=== PATIENT | female | born 1955 | race African-American/Black ===

== ENCOUNTER 2021-07-13 12:17 | Emergency (ER) | payer OTHER ==
[~2021-07-13] VITALS: Ht 170.2 cm; Wt 74.8 kg
[2021-07-13 13:02] LABS: ABSOLUTE NEUTROPHILS 5.4 thou/uL (1.4-8.2); BASOPHILS 0.3 % (0.0-2.0); HEMATOCRIT 43.9 % (37.0-47.0); HEMOGLOBIN 14.5 gm/dL (12.0-15.0); LYMPHOCYTES 18.9 % (24.0-44.0); MCH 29.3 pg (26.0-34.0); MCV 88.9 fL (80.0-100.0); MONOCYTES 9.9 % (1.0-8.0); PLATELET COUNT 208 thou/uL (150-400); POLYS 68.9 % (36.0-66.0); RBC 4.94 mil/uL (4.20-5.00); RDW 13.6 % (10.5-14.5); WBC 7.9 thou/uL (4.0-11.0)
[2021-07-13 13:11] LABS: CALCIUM 9.4 mg/dL (8.5-10.1); POTASSIUM 3.9 mmol/L (3.5-5.1)
[2021-07-13 13:17] LABS: ALBUMIN 3.6 g/dL (3.4-5.0); TOTAL BILIRUBIN 0.2 mg/dL (0.2-1.0); TOTAL PROTEIN 7.8 g/dL (6.4-8.2)
[2021-07-13 13:30] LABS: URINE BILIRUBIN NEGATIVE (Negative); URINE BLOOD NEGATIVE (Negative); URINE CLARITY CLEAR; URINE COLOR YELLOW; URINE GLUCOSE-RANDOM* NEGATIVE (Negative); URINE KETONES NEGATIVE (Negative); URINE NITRITE-REFLEX NEGATIVE (Negative); URINE PROTEIN (DIPSTICK) NEGATIVE (Negative); URINE SPECIFIC GRAVITY >= 1.030 (1.005-1.035); URINE UROBILINOGEN 0.2 E.U./dl (0.2-1.0)
[2021-07-13 13:37] LABS: URINE LEUKOCYTES-REFLEX 1+ (Negative)
[2021-07-13 13:47] LABS: SQUAMOUS 4-10 Moderate /LPF (0-3)
[2021-07-13 13:48] LABS: MUCUS 0-3 Light strn/LPF (None Seen); URINE RBC 1-2 Rare /HPF (NONE SEEN)
[2021-07-13] MEDS ORDERED: CEPHALEXIN500 MG PO (14:54)
[2021-07-13] MEDS ORDERED: TYLENOL325 MG PO (15:07)
[2021-07-13] MEDS ORDERED: ADVAIR 250-501 EACH INH (15:08)
[2021-07-13] MEDS ORDERED: PROAIR DIGIHAL90 MCG INH (15:20)
[2021-07-13] MEDS ORDERED: NORVASC10 MG PO (15:21)
[2021-07-13] MEDS ORDERED: VAZALORE81 MG PO (15:21)
[2021-07-13] MEDS ORDERED: ARICEPT10 M1 PO (15:21)
[2021-07-13] MEDS ORDERED: VITAMIN D31250 MC1 PO (15:26)
[2021-07-13] MEDS ORDERED: CLONIDINE HCL0.1 M1 PO (15:28)
[2021-07-13] MEDS ORDERED: DULCOLAX STOOL100 M1 PO (15:28)
[2021-07-13] MEDS ORDERED: HYDROXYZINE HCL25 M2 PO (15:28)
[2021-07-13] MEDS ORDERED: LOPRESSOR50 MG PO (15:29)
[2021-07-13] MEDS ORDERED: MIRALAX119 GM PO (15:29)
[2021-07-13] MEDS ORDERED: VITAMIN B-1100 M2 PO (15:30)
[2021-07-13] MEDS ORDERED: ZOLOFT100 MG PO (15:30)
[2021-07-13] MEDS ORDERED: SUPER THERAVIT1 EACH PO (15:30)
[2021-07-13] MEDS ORDERED: VENTOLIN HFA 1818 GM INH (15:31)
[2021-07-13] MEDS ORDERED: VITAMIN C500 M2 PO (15:32)
[2021-07-13] MEDS ORDERED: ZINC-22050 MG PO (15:33)
--- NOTE | 2021-07-13 15:36 | EKG ---
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 07/13/21 [id number] William Zhang MD, FACC /EPI
[2021-07-13 21:22] VITALS: BP 128/75
== END 2021-07-13 21:15 | disposition home or self-care (01) ==
LOC: ER 12:17
PROVIDERS: Physician Assistant
DX: N39.0 Urinary tract infection, site not specified (principal); F41.9 Anxiety disorder, unspecified; F32.9 Major depressive disorder, single episode, unspecified; K21.9 Gastro-esophageal reflux disease without esophagitis; I10 Essential (primary) hypertension; F10.10 Alcohol abuse, uncomplicated; Z86.16 Personal history of COVID-19; Z98.890 Other specified postprocedural states; Z79.891 Long term (current) use of opiate analgesic; Z79.51 Long term (current) use of inhaled steroids; Z79.82 Long term (current) use of aspirin; Z79.1 Long term (current) use of non-steroidal anti-inflammatories (NSAID); Z79.899 Other long term (current) drug therapy; Z91.041 Radiographic dye allergy status; Z91.013 Allergy to seafood; Z88.8 Allergy status to other drugs, medicaments and biological substances; Z91.018 Allergy to other foods